=== PATIENT | male | born 1985 | race Caucasian/White ===

== ENCOUNTER → 2020-06-20 | Outpatient (REF) | payer BC | LOC: EEVIPCON 13:22 → M LAB REF 13:22 | PROVIDERS: ATTEND Specialist | DX: H60.311 Diffuse otitis externa, right ear (principal) ==

== ENCOUNTER → 2021-10-31 | Outpatient (CLI) | payer BC | LOC: M LABSMTC 11:31 | PROVIDERS: ATTEND Anesthesiology | DX: Z01.812 Encounter for preprocedural laboratory examination (principal); Z20.822 Contact with and (suspected) exposure to COVID-19 ==

== ENCOUNTER 2021-11-05 08:27 | Day surgery (SDC) | payer BC ==
[~2021-11-05] VITALS: Ht 190.5 cm; Wt 9662.4 kg
[~2021-11-05 08:27] MED LIST: GNP650TA8 PO; IBUP200C25 PO; LR 1,000 ML IV ONE; OMEP10CASR PO
[2021-11-05] MEDS ORDERED: TUMS500C PO (09:36)
[2021-11-05] MEDS ORDERED: ONDANSETRON 4MG/2ML VIAL As Ordered ONE (10:55)
[2021-11-05] MEDS ORDERED: METOCLOPRAMIDE INJ 10MG/2ML VIAL (J2765 PER 1) As Ordered ONE (10:55)
[2021-11-05] MEDS ORDERED: propofoL 200 MG/20 ML VIAL As Ordered ONE ×2 (10:55→11:00)
[2021-11-05] MEDS ORDERED: LIDOCAINE 2% 100MG/5ML SDV (FOR ANES.) As Ordered ONE (10:55)
[2021-11-05] MEDS ORDERED: MIDAZOLAM INJ 2MG/2ML VIAL (J2250 PER 1MG) As Ordered ONE (10:55)
[2021-11-05] MEDS ORDERED: fentaNYL 100 MCG/2 ML INJECTION As Ordered ONE (10:55)
[2021-11-05] MEDS ORDERED: LIDOCAINE 1% SDV 30ML VIAL As Ordered ONE (11:08)
[2021-11-05] MEDS ORDERED: BUPIVACAINE HCL 0.25% 30ML VIAL As Ordered ONE ×2 (11:08→11:09)
[2021-11-05] MEDS ORDERED: BACITRACIN OINTMENT 30GM TUBE As Ordered ONE (11:08)
[2021-11-05] MEDS ORDERED: ceFAZolin 1GM VIAL (J0690 PER 500MG) As Ordered ONE (11:48)
[2021-11-05] MEDS ORDERED: KETOROLAC 60MG 2ML VIAL As Ordered ONE (11:52)
[2021-11-05] MEDS ORDERED: BACT800T5 PO (12:13)
[2021-11-05 12:40] VITALS: BP 148/99
== END 2021-11-05 12:45 | disposition home or self-care (01) ==
LOC: M SDC 08:27
PROVIDERS: ATTEND Urology
DX: L72.0 Epidermal cyst (principal); Q17.2 Microtia; R42 Dizziness and giddiness; Q76.6 Other congenital malformations of ribs; K21.9 Gastro-esophageal reflux disease without esophagitis; R06.83 Snoring; Z88.4 Allergy status to anesthetic agent; F17.210 Nicotine dependence, cigarettes, uncomplicated; Z87.442 Personal history of urinary calculi; Z79.899 Other long term (current) drug therapy
CPT/HCPCS: 11623; 88307; J0690; J1885; J2250; J3010

== ENCOUNTER → 2022-02-05 | Outpatient (CLI) | payer BC ==
[~2022-02-05] MED LIST changes: +BACT800T5 PO; -LR 1,000 ML IV ONE; +TUMS500C PO
== END ==
LOC: M WHC 15:23
PROVIDERS: ATTEND Physician Assistant
DX: N28.9 Disorder of kidney and ureter, unspecified (principal)